=== PATIENT | male | born 1995 | race Caucasian/White ===

== ENCOUNTER 2024-08-05 09:28 | Emergency (ER) | payer OTHER ==
[2024-08-05] MEDS: Lidocaine 1% 10 ML MDV INJECT ONE (10:42)
[2024-08-05] MEDS: Diphtheria,Pertussis(Acell),Tetanus Vaccine 0.5 ML Syringe IM ONE (10:42)
== END 2024-08-05 11:53 | disposition home or self-care (01) ==
LOC: JD.ED 09:28
DX: S61.210A Laceration without foreign body of right index finger without damage to nail, initial encounter (principal); Z23 Encounter for immunization; W26.8XXA Contact with other sharp object(s), not elsewhere classified, initial encounter; Y93.23 Activity, snow (alpine) (downhill) skiing, snowboarding, sledding, tobogganing and snow tubing
CPT/HCPCS: 12002; 90471; 90715; 99282; 99282-25; J3490